=== PATIENT | male | born 1990 | race Caucasian/White ===

== ENCOUNTER 2021-01-11 20:49 | Inpatient (IN) | payer OTHER ==
[~2021-01-11] VITALS: Ht 177.8 cm; Wt 58.1 kg
--- NOTE | 2021-01-11 20:58 | NUR ---
PT BIBRA [address] [employer] [address]RE[address] C/O BEHAVIORAL AND BANGING HEAD AGAINST WALL. PT PLACED IN BED 12 ON MONITOR AND PULSE OX. PT VERBALLY ABUSIVE, SPITTING, AND KICKING AROUND. AWAITING ER MD FOR EVAL AND ORDERS.
[2021-01-11] MEDS ORDERED: LORAZEPAM INJ 2 MG/ML VIAL IM ONE (21:00)
[2021-01-11] MEDS ORDERED: OLANZAPINE 10 MG VIAL IM ONE ×2 (21:00→21:52)
[2021-01-11] MEDS ORDERED: diphenhydrAMINE HCL 50 MG/ML VIAL IM ONE (21:00)
--- NOTE | 2021-01-11 21:35 | NUR ---
PER OFFICER DOROTHY PT WAS PLACED ON 5150 HOLD FOR DTS
[2021-01-11] MEDS ORDERED: diphenhydrAMINE HCL 50 MG/ML VIAL ONE (21:52)
[2021-01-11] MEDS ORDERED: LORAZEPAM INJ 2 MG/ML VIAL ONE (21:54)
[2021-01-11 23:35] LABS: BASOPHILS # (AUTO) 0.1 /CMM (0.0-0.2); BASOPHILS % (AUTO) 0.7 % (0.0-2.0); EOSINOPHILS % (AUTO) 1.4 % (0.0-6.0); HEMATOCRIT 42 % (39-51); HEMOGLOBIN 13.8 g/dL (13.5-17.5); LYMPHOCYTES # (AUTO) 3.7 /CMM (0.8-4.8); LYMPHOCYTES % (AUTO) 41.8 % (20.0-44.0); MEAN CORPUSCULAR HGB CONC 33 g/dl (31.0-36.0); MEAN CORPUSCULAR VOLUME 92 fL (80-96); MONOCYTES % (AUTO) 11.5 % (2.0-12.0); NEUTROPHILS # (AUTO) 3.9 /CMM (1.8-8.9); NEUTROPHILS % (AUTO) 44.6 % (43.0-81.0); PLATELET COUNT (AUTO) 225 /CMM (150-450); RED BLOOD CELL COUNT(AUTO) 4.52 MIL/uL (4.5-6.0); WHITE BLOOD COUNT (AUTO) 8.9 K/uL (4.3-11.0)
[2021-01-11 23:39] LABS: CALCIUM, SERUM 9.1 mg/dL (8.5-10.1); CARBON DIOXIDE 28 mmol/L (21-32); CHLORIDE 103 mmol/L (98-107); CREATININE 0.9 mg/dL (0.6-1.3); GLUCOSE 96 mg/dL (74-106); POTASSIUM 3.2 mmol/L (3.5-5.1); SODIUM SERUM 141 mmol/L (136-145); UREA NITROGEN, BLOOD 20 mg/dL (7-18)
[2021-01-11 23:58] LABS: ALKALINE PHOSPHATASE 239 U/L (46-116); BILIRUBIN,DIRECT 5.1 mg/dL (0.0-0.2); TOTAL PROTEIN, SERUM 6.5 g/dL (6.4-8.2)
[2021-01-12 00:01] LABS: ACETAMINOPHEN 0 ug/ml (10-30); ALCOHOL, BLOOD < 3 mg/dL (0-0)
--- NOTE | 2021-01-12 00:05 | NUR ---
URINE COLLECTED, SENT TO LAB.
[2021-01-12 00:19] LABS: ALANINE AMINOTRANSFERASE 1961 U/L (12-78); ASPARTATE AMINOTRANSFERASE 1942 U/L (15-37)
--- NOTE | 2021-01-12 01:20 | NUR ---
BROUGHT BACK FROM CT
[2021-01-12 01:59] LABS: BILIRUBIN,URINE MODERATE (NEGATIVE); COLOR,URINE YELLOW (YELLOW); LEUKOCYTE ESTERASE ,URINE NEGATIVE (NEGATIVE); NITRITE, URINE NEGATIVE (NEGATIVE); PROTEIN,URINE TRACE mg/dl (NEGATIVE); UGLUCOSE NEGATIVE (NEGATIVE)
[2021-01-12 02:29] LABS: BACTERIA,URINE Few /HPF (None Seen); RBC,URINE 21-50 /HPF (0-2); SQUAMOUS EPITHELIAL CELL,UR Few /HPF (None Seen)
--- NOTE | 2021-01-12 06:13 | NUR ---
Covid negative per lab
--- NOTE | 2021-01-12 06:45 | NUR ---
REMAINS ON MONITOR AND PULSE OX. PROVIDED WITH FOOD.
--- NOTE | 2021-01-12 08:16 | NUR ---
PT SLEEPING SOUNDLY RESP EVEN UNLABORED
--- NOTE | 2021-01-12 12:39 | NUR ---
PATIENT IN BED. RESPIRATIONS UNLABORED. VITAL SIGNS STABLE. PROVIDED WITH LUNCH.
--- NOTE | 2021-01-12 15:49 | NUR ---
PATIENT SLEEPING. RESPIRATIONS EVEN AND UNLABORED. CONNECTED TO MONITOR. VITAL SIGNS STABLE.
--- NOTE | 2021-01-12 16:26 | NUR ---
[facility] CALLED ONLY PLACE ACCEPTING IN [place] AND NO BED UNTIL TOMORROW.
--- NOTE | 2021-01-12 16:41 | NUR ---
FAXED CLINICALS TO [facility] PER [facility]S REQUEST
--- NOTE | 2021-01-12 19:20 | NUR ---
PATIENT LAYING ASLEEP IN BED. VITAL SIGNS STABLE.
--- NOTE | 2021-01-12 23:45 | NUR ---
PT ASLEEP, VSS.
--- NOTE | 2021-01-13 04:13 | NUR ---
PT REMAINS ASLEEP, PROVIDED WITH BLANKETS.
--- NOTE | 2021-01-13 06:40 | NUR ---
CALLED FOR BREAKFAST
[2021-01-13] MEDS ORDERED: LORAZEPAM INJ 2 MG/ML VIAL ONE (07:47)
--- NOTE | 2021-01-13 07:51 | NUR ---
Assumed care report given by Esthela BILLY ,patient is 5150 awaiting for placement sitter @ bedside .
--- NOTE | 2021-01-13 07:52 | NUR ---
Patient yelling ,verbally abusive ,spitting ,trying getting out of bed non follows command MD aware with order for agitation .
[2021-01-13] MEDS ORDERED: LORAZEPAM INJ 2 MG/ML VIAL IM ONE (08:00)
--- NOTE | 2021-01-13 08:00 | NUR ---
Keerthi mckeon in ED - 01/13/21 at 0846 by MARTY Pt jake/ishmaeling- Dr Chastity carr w/orders for meds
[2021-01-13] MEDS ORDERED: OLANZAPINE 10 MG VIAL IM ONE ×2 (08:05→08:30)
--- NOTE | 2021-01-13 08:08 | NUR ---
Noted more agitation ,yelling cursing staff verbally abusive getting out of bed ,yelling loud non comply Md aware with order ,vitals taken and filed security standby .Continue to monitor .
--- NOTE | 2021-01-13 08:29 | NUR ---
CALLED [facility] [phone] MARÍA. THEY HAVE SENT CLINICALS TO VARIOUS HOSPITALS AND ARE WAITING CALL BACK. CALL WHEN WE GET A BED.
--- NOTE | 2021-01-13 08:51 | NUR ---
Breakfast served per INSPECTING SUPERVISOR consumed 100 % no nausea and vomiting .
--- NOTE | 2021-01-13 09:14 | NUR ---
Patient calm @ this time no further yelling ,remain 5150 checked room for safety side rails padded ,continue to monitor .
[2021-01-13] MEDS ORDERED: LITHIUM CARBONATE 150 MG CAPSULE PO SCH (10:00)
--- NOTE | 2021-01-13 10:36 | NUR ---
Patient eyes close arousable he agreed to take his oral meds lithium carbonate .
--- NOTE | 2021-01-13 11:50 | NUR ---
AT BEDSIDE FOR EVAL.
--- NOTE | 2021-01-13 12:04 | NUR ---
Patient eyes close arousable non distress continue to monitor .
[2021-01-13] MEDS ORDERED: LITH150C PO (12:42)
--- NOTE | 2021-01-13 13:04 | NUR ---
[facility] CALLED TONGUE CARRIER PAGED.
--- NOTE | 2021-01-13 13:38 | NUR ---
GOT BED 107
--- NOTE | 2021-01-13 14:16 | NUR ---
report given to Lesley BILLY for akhil.
--- NOTE | 2021-01-13 14:47 | NUR ---
wheeled patient via gurney accompanied by EMT in no distress. RN at bedside to assume care.
[2021-01-13 15:00] VITALS: BP 120/85
[2021-01-13] MEDS ORDERED: ONDANSETRON HCL/PF 4 MG/2 ML VIAL IVP PRN (17:30)
[2021-01-13] MEDS ORDERED: MAG HYDROX/AL HYDROX/SIMETH 30 ML UDC PO PRN (17:30)
[2021-01-13] MEDS ORDERED: MAGNESIUM HYDROXIDE 30 ML UDC PO PRN (17:30)
[2021-01-13] MEDS ORDERED: ZOLPIDEM TARTRATE 5 MG TABLET PO PRN (17:30)
[2021-01-13] MEDS ORDERED: Z GUARD REMEDY 2 OZ OINT TP PRN (17:30)
[2021-01-13] MEDS: IV 1/2NS 1000 ML 1,000 ML IV PRN (17:59)
[2021-01-13 20:00] VITALS: BP 111/62
--- NOTE | 2021-01-13 20:00 | NUR ---
RN NOTE RECEIVED PT IN BED A/A/O X3. PT IS ON RA SATING 96%. PT HAS UNLABORED BREATHING.PT STATES HE HAD SUICIDAL IDEATION AND WAS PLANNING TO JUMP OUT OF BRIDGE WITH GUN. PT HAS SITTER AT BED SIDE.SAFETY MEASURES IN PLACE
[2021-01-13] MEDS: LITHIUM CARBONATE (300 MG CAP) 300 MG CAPSULE PO SCH (21:16)
[2021-01-14 04:00] VITALS: BP 123/80
--- NOTE | 2021-01-14 07:16 | NUR ---
RN NOTE REPORT GIVEN TO ONCOMING SHIFT FOR MARIA DOLORES.
--- NOTE | 2021-01-14 07:28 | NUR ---
RECEIVED PATIENT IN BED. NO ACUTE DISTRESS NOTED. PATIENT ALERT & ORIENTED X3. PATIENT ON ROOM AIR, SATURATING WELL. PATIENT RFA INTACT, PATENT. SITTER IN PLACE. PATIENT SAFETY MEASURES MAINTAINED. CALL LIGHT WITHIN REACH. WILL CONTINUE TO MONITOR.
[2021-01-14 08:00] VITALS: BP 131/72
[2021-01-14] MEDS: LITHIUM CARBONATE (300 MG CAP) 300 MG CAPSULE PO SCH ×2 (09:03→20:38)
[2021-01-14 15:59] LABS: BASOPHILS % (AUTO) 0.6 % (0.0-2.0); EOSINOPHILS % (AUTO) 2.9 % (0.0-6.0); HEMATOCRIT 45 % (39-51); HEMOGLOBIN 14.7 g/dL (13.5-17.5); LYMPHOCYTES # (AUTO) 2.7 /CMM (0.8-4.8); LYMPHOCYTES % (AUTO) 42.6 % (20.0-44.0); MEAN CORPUSCULAR HGB CONC 33 g/dl (31.0-36.0); MEAN CORPUSCULAR VOLUME 92 fL (80-96); MONOCYTES # (AUTO) 0.7 /CMM (0.1-1.30); MONOCYTES % (AUTO) 11.7 % (2.0-12.0); NEUTROPHILS # (AUTO) 2.7 /CMM (1.8-8.9); NEUTROPHILS % (AUTO) 42.2 % (43.0-81.0); PLATELET COUNT (AUTO) 247 /CMM (150-450); RED BLOOD CELL COUNT(AUTO) 4.86 MIL/uL (4.5-6.0); WHITE BLOOD COUNT (AUTO) 6.4 K/uL (4.3-11.0)
[2021-01-14 16:00] VITALS: BP 122/72
[2021-01-14 16:07] LABS: ALBUMIN 2.8 g/dL (3.4-5.0); BILIRUBIN,DIRECT 4.8 mg/dL (0.0-0.2); CREATININE 0.8 mg/dL (0.6-1.3); MAGNESIUM 2.1 mg/dL (1.8-2.4); PHOSPHORUS 2.9 mg/dL (2.5-4.9); POTASSIUM 3.9 mmol/L (3.5-5.1); TOTAL PROTEIN, SERUM 7.2 g/dL (6.4-8.2)
[2021-01-14 16:20] LABS: THYROID STIMULATING HORMONE 1.252 uIU/mL (0.358-3.74)
--- NOTE | 2021-01-14 16:38 | NUR ---
SS Consult: SS consult requested substance use and emotional support The pt. is awake, alert and oriented x 2. The pt. appears disheveled. Pt. makes poor eye contact.Pt. has pressured speech with Persecutory delusions. The pt. is extremely paranoid, irritable, verbally aggressive. Patient requested SW not to look at him. Per EMR, pt. tested positive for Meth & Cannabinoids. Pt. stated that he hears voices "all day". Pt. stated the voices he hears are all female. Pt. stated, "that is probably why I am brown". Pt. requesting drug rehabs and mental health treatment for Schizophrenia. SW unable to further assess the pt. as he is very guarded and not willing to provide additional information. SW will provide resources and follow up accordingly.
--- NOTE | 2021-01-14 18:10 | NUR ---
PATIENT IN BED. NO ACUTE DISTRESS NOTED. PATIENT ALERT & ORIENTED X3. PATIENT ON ROOM AIR, SATURATING WELL. PATIENT RFA INTACT, PATENT. SITTER IN PLACE. PATIENT SAFETY MEASURES MAINTAINED. CALL LIGHT WITHIN REACH. WILL ENDORSE PLAN OF CARE TO ONCOMING SHIFT
--- NOTE | 2021-01-14 19:20 | NUR ---
RN OPENING NOTE RECEIVED PATIENT IN BED RESTING WITH SITTER ANXIOUS PARANOID YELLING CRYING ALERT ORIENTED X2 PREVIOUS NURSE ENDORSED HE REFUSED IV HYDRATION AND HE REMOVED IV LINE,NURSE ALREADY NOTIFIED IMPLEMENT SAFETY MEASURE,CALL LIGHT WITHIN REACH CONTINUE TO MONITOR.
--- NOTE | 2021-01-14 20:50 | NUR ---
RN NOTE SPOKE WITH PATIENT HE AGREED TO HAVE IV LINE STARTED A NEW IV LINE #22 ON LEFT FOREARM WITH GOOD BLOOD RETURN,INTACT PATENT,START IV HYDRATION 1/2NS 75CC/HR CONTINUE TO MONITOR
--- NOTE | 2021-01-14 21:46 | NUR ---
RN NOTE PATIENT REMOVED IV LINE AND REFUSE TO HAVE IV LINE YELLING SEAMING CONTINUE TO MONITOR.
--- NOTE | 2021-01-14 22:00 | NUR ---
RN NOTE PATIENT REQUEST TO HAVE IV LINE AND CONTINUE IV HYDRATION INSERT A NEW IV LINE ON LEFT FOREARM G#22 WITH GOOD BLOOD RETURN CONTINUE TO MONITOR.
[2021-01-15] VITALS (22 sets, daily range): BP systolic 114–147; BP diastolic 59–94
--- NOTE | 2021-01-15 | NUR ---
RN NOTE PATIENT REFUSES TO TAKE VITAL SIGNS CONTINUE TO MONITOR.
[2021-01-15] MEDS: IV 1/2NS 1000 ML 1,000 ML IV PRN ×2 (05:50→18:18)
--- NOTE | 2021-01-15 07:01 | NUR ---
RN CLOSING NOTE PATIENT REMAINS ON ALERT ORIENTED X2 ON ROOM AIR NO SOB NOT ACUTE DISTRESS NOTED,ANXIOUS AGITATED,REFUSED TO BE CHANGE IV SITE IS ON LEFT FOREARM INTACT PATENT IV 1/2 NS RUNNING 75CC/HR ENDORSE NEXT COMING SHIFT FOR CONTINUATION OF CARE.
--- NOTE | 2021-01-15 07:15 | NUR ---
RN OPENING NOTE PATIENT RECEIVED SITTING IN SEMI-FOWLERS POSITION. PATIENT IS ALERT ORIENTED X2 ON ROOM AIR. NO SOB OR ACUTE DISTRESS NOTED. PATIENT RECEIVED ANXIOUS AND AGITATED. IV SITE ON LEFT FOREARM #22 INTACT AND PATENT RUNNING 1/2 NS AT 75 ML/HR. SAFETY PRECAUTIONS IMPLEMENTED, BED LOCKED IN LOWEST POSITION, SIDE RAILS UP X2, CALL LIGHT WITHIN REACH. WILL CONTINUE TO MONITOR AND PROVIDE CARE THROUGHOUT SHIFT.
[2021-01-15] MEDS: OLANZAPINE 5 MG TABLET PO PRN (09:36)
[2021-01-15] MEDS: LITHIUM CARBONATE (300 MG CAP) 300 MG CAPSULE PO SCH ×3 (09:36→20:24)
--- NOTE | 2021-01-15 11:08 | NUR ---
Clinical Social Work Note Pt. is a 30 year old male admitted on a 5150 written by AKOSUA. pt is now on a [address] Zimmerman and has a sitter at his bedside. Patient has a history of stimulant and cannabinoid abuse. Patient will have his probable cause hearing in the next day or so. Discussed this case with Dr Zimmerman who feels patient needs to remain on 5250. Per Dolores,set up and charger patient responds well to Zyprexa. Patient cannot be transferred to an inpatient psychiatric facility in view of his liver failure.Patient is currently calm in his room and lying in bed. Dolores assisted with educating staff to give pt his Zprexa PRN before he escalates and is out of control on the floor which happened yesterday. Plan: Dr Zimmerman will continue consulting on patient and attempt to stabilize his psychosis while on the medical floor. 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 Patient shows signs of cluster B personality disorder in his presentation as well as possible disorders mentioned. Per Dolores patient gets upset and agitated when people engage with him so this writer editor did not meet with patient today. Plan: 1) Await probable cause hearing 2) Patient will need snf versus voluntary inpatient hospitalization at [facility] ([phone]) when medically stable and when 5250 is discontinued. [facility] and [facility] will not even consider this patent in view of liver disease.
[2021-01-15 11:10] LABS: HEMOGLOBIN 14.7 g/dL (13.5-17.5)
[2021-01-15 11:16] LABS: BASOPHILS # (AUTO) 0.2 /CMM (0.0-0.2); BASOPHILS % (AUTO) 2.3 % (0.0-2.0); CALCIUM, SERUM 8.3 mg/dL (8.5-10.1); CREATININE 0.8 mg/dL (0.6-1.3); EOSINOPHILS % (AUTO) 2.7 % (0.0-6.0); HEMATOCRIT 44 % (39-51); LYMPHOCYTES % (AUTO) 40.5 % (20.0-44.0); MAGNESIUM 1.9 mg/dL (1.8-2.4); MEAN CORPUSCULAR HGB CONC 33 g/dl (31.0-36.0); MEAN CORPUSCULAR VOLUME 92 fL (80-96); MONOCYTES # (AUTO) 0.8 /CMM (0.1-1.30); MONOCYTES % (AUTO) 10.3 % (2.0-12.0); NEUTROPHILS # (AUTO) 3.3 /CMM (1.8-8.9); NEUTROPHILS % (AUTO) 44.2 % (43.0-81.0); PHOSPHORUS 3.3 mg/dL (2.5-4.9); PLATELET COUNT (AUTO) 267 /CMM (150-450); POTASSIUM 3.8 mmol/L (3.5-5.1); RED BLOOD CELL COUNT(AUTO) 4.84 MIL/uL (4.5-6.0); WHITE BLOOD COUNT (AUTO) 7.4 K/uL (4.3-11.0)
[2021-01-15 11:39] LABS: ALBUMIN 2.7 g/dL (3.4-5.0); BILIRUBIN,DIRECT 2.7 mg/dL (0.0-0.2); BILIRUBIN,TOTAL 3.6 mg/dL (0.2-1.0); TOTAL PROTEIN, SERUM 7.3 g/dL (6.4-8.2)
[2021-01-15] MEDS: OLANZAPINE ZYDIS 5 MG TAB.RAPDIS PO SCH ×2 (12:47→17:00)
--- NOTE | 2021-01-15 15:10 | NUR ---
called anmol faustin patient shouting screaming and paranoid that everybody laughing at him.notified dr. berkowitz.
[2021-01-15] MEDS ORDERED: LORAZEPAM INJ 2 MG/ML VIAL IM ONE (16:00)
[2021-01-15] MEDS ORDERED: OLANZAPINE 10 MG VIAL IM ONE (16:00)
--- NOTE | 2021-01-15 17:00 | NUR ---
PATIENT HAD AGGRESSIVE VERBAL AND PHYSICAL OUTBURST WHERE PATIENT BEGAN BANGING BACK OF HEAD IN WALL REPEATEDLY. PATIENT THEN BROKE 106 ROOM WINDOW WITH RIGHT HAND. MD AWARE, ATTENDING AWARE, AND NURSING DEBEADER AWARE. IVIS NIETO CALLED X 2 TIMES. OBTAINED ORDERS TO ADMINISTER ZYPREXA AND ATIVAN IM. PATIENT THEN TRANSFERRED TO ICU PER PSYCH PROTOCOL.
--- NOTE | 2021-01-15 17:10 | NUR ---
prn zyprexa and ativan given.
--- NOTE | 2021-01-15 17:10 | NUR ---
despite security with patient, become more cambative and bang his head on wall and broke window glass. leather restraint initiated.
--- NOTE | 2021-01-15 17:11 | NUR ---
patient still awake talking to self,md made aware . transferred to icu for close monitoring.
--- NOTE | 2021-01-15 17:15 | NUR ---
RN INITIAL NOTES RECEIVED PT FROM CLAUDIA, SP CODE NIETO. PT ALERT, ORIENTED WITH PSYCHOTIC EPISODES. PT STILL NOTED WITH AGGRESSIVE BEHAVIOR. PT BANGING HIS HEAD ON BED, SPITTING, TRYING TO GET UP OF BED AND TRYING TO MOVE EXTREMITIES TRYING TO HIT. ON ROOM AIR. ON 3 POINT LEATHER RESTRAINT. ASSESSED BILATERAL HANDS AND RIGHT FOOT, NO CIRCULATORY IMPAIRMENT NOTED. PT ABLE TO MOVE FINGERS AND RIGHT TOES. GOOD PALPABLE PULSES NOTED. PT CONNECTED TO MONITOR. NOTIFIED ARLENE COCHRAN NP. CALLED DR GRIER, AWAITING FOR CALL BACK. WILL CLOSELY MONITOR
--- NOTE | 2021-01-15 17:19 | NUR ---
PATIENT TRANSFERRED TO ICU PER PSYCH PROTOCOL. REPORT GIVEN TO OLIVE.
[2021-01-15] MEDS ORDERED: OLANZAPINE 10 MG VIAL IM PRN (18:00)
[2021-01-15] MEDS: OLANZAPINE 10 MG TABLET PO SCH (18:08)
--- NOTE | 2021-01-15 18:51 | NUR ---
RN CLOSING NOTES NO PSYCHOTIC BEHAVIOR NOTED AT THIS TIME. REMAINS ON RESTRAINTS. IVF INFUSING. KEPT COMFORTABLE. WILL ENDORSE FOR CONTINUITY OF CARE
--- NOTE | 2021-01-15 19:15 | NUR ---
Received patient resting AAOX3 with occasional hallucination hearing voices.Patient on 3 point gait leather restraint with 1:1 sitter.No circulatory impairment noted.Skin warm to touch pulses palpable.VS stable.SR per monitor.Respiration even and unlabored.IVF infusing well.Denies pain or sob,nausea or vomiting.Closely monitored. Addendum: 01/15/21 at 2153 by ZAKIYA SANTANA RN please note : correction its nylon restraint
--- NOTE | 2021-01-15 20:30 | NUR ---
Patient incontinent of urine.Bed bath rendered and complete linens changed.Security in attendance during care.No violent behavior noted.Calm and cooperative.Turned to right side as requested.Verbalized comfort.Scheduled medication administered with water and cup of pudding.
[2021-01-16] VITALS (44 sets, daily range): BP systolic 101–135; BP diastolic 60–85
--- NOTE | 2021-01-16 | NUR ---
Patient sleeping awakened easily.Turned and repositioned .Condom cath in place with moderate urine output.Denies any discomfort.
--- NOTE | 2021-01-16 04:00 | NUR ---
Awakened verbalized he is hungry.Pudding and water given requested.VS remains stable. Self Turned and repositioned.Restraints protocol maintained.
[2021-01-16 04:26] LABS: BASOPHILS % (AUTO) 0.6 % (0.0-2.0); EOSINOPHILS % (AUTO) 2.7 % (0.0-6.0); HEMATOCRIT 44 % (39-51); HEMOGLOBIN 14.5 g/dL (13.5-17.5); LYMPHOCYTES # (AUTO) 2.8 /CMM (0.8-4.8); LYMPHOCYTES % (AUTO) 35.5 % (20.0-44.0); MEAN CORPUSCULAR HGB CONC 33 g/dl (31.0-36.0); MEAN CORPUSCULAR VOLUME 92 fL (80-96); MONOCYTES # (AUTO) 0.8 /CMM (0.1-1.30); MONOCYTES % (AUTO) 9.7 % (2.0-12.0); NEUTROPHILS # (AUTO) 4.1 /CMM (1.8-8.9); NEUTROPHILS % (AUTO) 51.5 % (43.0-81.0); PLATELET COUNT (AUTO) 253 /CMM (150-450); RED BLOOD CELL COUNT(AUTO) 4.81 MIL/uL (4.5-6.0)
[2021-01-16 04:48] LABS: CALCIUM, SERUM 8.1 mg/dL (8.5-10.1); CREATININE 0.8 mg/dL (0.6-1.3); MAGNESIUM 1.7 mg/dL (1.8-2.4); PHOSPHORUS 3.4 mg/dL (2.5-4.9)
[2021-01-16 04:54] LABS: ALBUMIN 2.6 g/dL (3.4-5.0); BILIRUBIN,DIRECT 1.7 mg/dL (0.0-0.2); BILIRUBIN,TOTAL 2.4 mg/dL (0.2-1.0); TOTAL PROTEIN, SERUM 7.2 g/dL (6.4-8.2)
--- NOTE | 2021-01-16 07:00 | NUR ---
Patient doze off and on.Always asking for food and provided.Good appetite.Patient refused to answer questions or inquiry.All he volunteered to to tell that he is adopted, homeless. Verbalized IM treated like a slave for 8 years.Don't ask me anymore question.Emotional support provided.Kept comfortable.Report given to day shift for MARIA DOLORES.No acute distress noted.
[2021-01-16] MEDS: IV 1/2NS 1000 ML 1,000 ML IV PRN ×2 (07:09→18:39)
--- NOTE | 2021-01-16 07:49 | NUR ---
RN OPENING NOTES RECEIVED PT AWAKE ALERT AND APPEARS AGITATED. SATURATING WELL ON ROOM AIR. SINUS VINOD 50S ON TELE MONITOR. THREE POINT RESTRAINT IN PLACE. COLOR WARMTH MOVEMENT SENSATION INTACT AND PERIPHERAL PULSES PRESENT. PATIENT INDEPENDENT WITH BED MOBILITY. PAXTON IV WITH IVF AT 75ML/HR. CONDOM CATHETER DRAINING TO GRAVITY. HAVING BREAKFAST AT THIS TIME. WILL CONTINUE TO MONITOR.
--- NOTE | 2021-01-16 08:00 | NUR ---
RN NOTES WHILE HAVING BREAKFAST, PATIENT TOOK OFF ELECTRODES, AND BP CUFF. GOT AGITATED ON ATTEMPT TO PUT THEM BACK. UNABLE TO OBTAIN VITAL SIGNS.
[2021-01-16] MEDS: LITHIUM CARBONATE (300 MG CAP) 300 MG CAPSULE PO SCH ×3 (08:10→12:23)
[2021-01-16] MEDS: OLANZAPINE 10 MG TABLET PO SCH ×4 (08:10→18:57)
--- NOTE | 2021-01-16 09:20 | NUR ---
RN NOTES PATIENT REMOVED CONDOM CATHETER AND REFUSED TO HAVE IT REPLACED. EMPTIED 500MLS WITH THE URINAL.
[2021-01-16] MEDS: Magnesium 1GM/D5W 100ML PREMIX 100 ML IV SCH ×2 (09:50→10:40)
[2021-01-16] MEDS: OLANZAPINE 5 MG TABLET PO PRN (12:19)
--- NOTE | 2021-01-16 12:47 | NUR ---
RN NOTES PATIENT REFUSED 1PM LITHIUM. RN OFFERED ZYPREXA 5MG PO PRN INSTEAD, BUT PATIENT ALSO REFUSED THIS. WILL CONTINUE TO MONITOR BEHAVIORAL CHANGES.
[2021-01-16] MEDS ORDERED: GABAPENTIN 300 MG CAPSULE PO SCH ×2 (13:00→17:00)
[2021-01-16] MEDS: chlorproMAZINE HCL 25 MG TABLET PO SCH (13:44)
--- NOTE | 2021-01-16 15:49 | NUR ---
Social Service Consult: student services rep requested to discuss plan of care with the patient. Patient is a 30-year-old, male. SW met with the patient at his hospital bed in the intensive care unit. Patient is alert and oriented x4. Patient is eating his lunch. Per patients chart, patient was brought into the hospital on 01/13/21 for liver disease. SW spoke to patients WENCESLAO Martin who stated that Dr. Zimmerman spoke to the patient earlier and patient has agreed to go to [facility] for psychiatric treatment. Per WENCESLAO Martin, patient is on a 5250 hold which expires on 01/28/2021. SW spoke to the patient regarding plan of care. Patient stated that he agrees with the above-mentioned discharge plan. Patient stated he is currently homeless and has no source of income. Patient stated that he is currently experiencing hallucinations. Patient stated these hallucinations are tactile, visual and auditory. Patient presented paranoid. SW offered the patient homeless resources and substance use resources. Patient declined the resources at this time and stated, If I accept them now it will jinx me so give them to me later. SW will place these resources in the patient's chart at this time. PLAN: Patient to be transferred to [facility] once medically stable. [employer] Acre[place] Measurer to remain available, as needed.
--- NOTE | 2021-01-16 16:00 | NUR ---
RN NOTES PATIENT REFUSING VITAL SIGNS. TAKING OUT ELECTRODES, BP CUFF, AND OXIMETRY PROBE. Addendum: 01/16/21 at 1701 by MICHELLE KAY RN PER DR ANDERSON AT THIS MORNING'S ROUNDS, PT DOESN'T REALLY NEED THE ICU FREQUENCY OF VITAL SIGNS MONITORING SINCE PT'S REASON FOR ICU ADMISSION IS THE USE OF LEATHER RESTRAINTS.
--- NOTE | 2021-01-16 16:51 | NUR ---
RN NOTES PATIENT SCREAMING, RESPONDING TO INTERNAL STIMULI AND REPORTS VISUAL, AND AUDITORY HALLUCINATIONS. FOOD AND SODA SEEMS TO IMPROVE PATIENT'S BEHAVIOR. DELAY IN HANDLING FOOD REQUESTS ESCALATE PATIENT'S AGITATION.
--- NOTE | 2021-01-16 18:32 | NUR ---
RN CLOSING NOTES PATIENT CONTINUES TO DEMONSTRATE PSYCHOTIC EPISODES EVIDENCED BY RESPONDING TO INTERNAL STIMULI, FREQUENT SCREAMING, AGITATION, PARANOID DELUSIONS, AND INSTANCES OF BANGING HEAD AGAINST PILLOWS. LEATHER RESTRAINTS REMAIN IN PLACE SINCE PATIENT REMAINS TO BE A HARM TO SELF AND POTENTIALLY OTHERS. GOOD COLOR WARMTH MOVEMENT AND SENSATION. PULSES PALPABLE. PATIENT'S VITAL SIGNS TAKEN MANUALLY. PATIENT HEMODYNAMICALLY STABLE AT THIS TIME AND NOT IN ANY RESPIRATORY DISTRESS. WILL ENDORSE TO NIGHT RN FOR CONTINUITY OF CARE.
--- NOTE | 2021-01-16 18:59 | NUR ---
RN NOTES PATIENT AGITATED AND UNCOOPERATIVE BUT LEFT SOLID BOWEL ON BED. REFUSED TO BE CLEANED AND YELLED: "GET OUT YOU FREAK". CONTINUES TO YELL AT TIME OF WRITING.
--- NOTE | 2021-01-16 19:00 | NUR ---
RN NOTES PATIENT INITIALLY REFUSED 1700 MEDS: OLANZAPINE 10MG AND GABAPENTIN CAPSULE THEN LATER CHANGED HIS MIND AND ASKED FOR IT. THUS WAS GIVEN PO. SCANNING IS ERROR WITNESSED BY WENCESLAO GARDNER.
--- NOTE | 2021-01-16 19:10 | NUR ---
RN NOTES PATIENT STARTED TO BE EXTREMELY AGITATED. CODE GERSON WAS CALLED. IM OLANZAPINE 10MG IM WAS GIVEN. PATIENT WAS THEN PLACED ON A 4 POINT RESTRAINT. PATIENT WAS VERY UNCOOPERATIVE.
--- NOTE | 2021-01-16 21:00 | NUR ---
MANAGER LAUNDRY. PT SCRAMMING. YELLING, BANGING HIS LEG. SPITTING IN THE ROOM. ACTIVATED CODE NIETO. NOTIFIED SENIOR MECHANICAL TECHNICIAN HORACIO. ATIVAN 2MG IM ONCE ORDERED. PT ON 4 POINT. WILL CONTINUE TO MONITOR.
--- NOTE | 2021-01-16 21:00 | NUR ---
agricultural science professor. received the pt awake, refused care, refused monitor technician BP MONITOR. PT ON 4 POINT. AGITATED, RELEASSED AND CHECKED NO INJURY NOTED. HORACIO PROOF TECHNICIAN ASSESSED THE PT. PT IS SPITTING ON THE BED AND FLOOR.
[2021-01-16] MEDS: GABAPENTIN 300 MG CAPSULE PO SCH (21:22)
[2021-01-16] MEDS ORDERED: LORAZEPAM INJ 2 MG/ML VIAL IM ONE (21:30)
[2021-01-17] VITALS (10 sets, daily range): BP systolic 105–138; BP diastolic 57–79
--- NOTE | 2021-01-17 02:29 | NUR ---
agricultural adviser. pt is sleeping. vitals stable,
[2021-01-17 04:39] LABS: CALCIUM, SERUM 8.2 mg/dL (8.5-10.1); CREATININE 0.8 mg/dL (0.6-1.3); POTASSIUM 4.1 mmol/L (3.5-5.1)
--- NOTE | 2021-01-17 05:30 | NUR ---
curator horticultural museum. at this time pt is very co operative,pt on 4 point restraint. no injury noted, will continue to monitor
[2021-01-17] MEDS: IV 1/2NS 1000 ML 1,000 ML IV PRN (06:24)
--- NOTE | 2021-01-17 07:15 | NUR ---
NATURALIZATION EXAMINER NOTES RECEIVED PATIENT AWAKE ALERT X2-3 , CALM AND COOPERATIVE , NO SI AT THIS TIME . SR 75 ON BEDSIDE MONITOR , SPO2 OF 100% VIA RA , PAXTON # 18 WITH 1/2 NS @ 75ML/HR INFUSING WELL , ON 4 POINT RESTRAINS VISUAL CHECK PER PROTOCOL , WILL CONTINUE TO MONITOR .
[2021-01-17] MEDS: GABAPENTIN 300 MG CAPSULE PO SCH ×2 (08:05→13:00)
[2021-01-17 09:25] LABS: ALBUMIN 2.5 g/dL (3.4-5.0); BILIRUBIN,DIRECT 1.2 mg/dL (0.0-0.2); BILIRUBIN,TOTAL 1.6 mg/dL (0.2-1.0)
--- NOTE | 2021-01-17 09:30 | NUR ---
BARREL ROLLER NOTES SEEN AND EVALUATED BY DR GRIER , DISCUSSED LABS , PT IS MORE AWAKE AND COOPERATIVE WITH NO EPISODES OF AGITATION , PER MD OK TO DC IF MEDICALLY CLEARED , PENDING LFT AND BILIRUBIN TEST
[2021-01-17] MEDS: OLANZAPINE 5 MG TABLET PO PRN (10:24)
--- NOTE | 2021-01-17 10:36 | NUR ---
SOFT WATER MECHANIC NOTES NOTIFIED FELICIANO BALDERAS REGARDING RESULT OF HIS LFT AND BILIRUBIN , PT ALSO COMPLAINS OF RIGHT HAND PAIN NOTED WITH SWELLING AND PAIN UPON TOUCHING , AWARE
--- NOTE | 2021-01-17 10:36 | NUR ---
REVISING CLERK NOTES PT NOTED WITH EPISODE OF AGITATION , OFFERED ZYPREXIA PRN , PT REFUSED , MEDICATION WASTED .
[2021-01-17] MEDS ORDERED: NAPROXEN 250 MG TABLET PO PRN (11:00)
--- NOTE | 2021-01-17 11:41 | NUR ---
DEMURRAGE MAN NOTES PT AGITATED AND CURSING WHILE EATING, ON 4 PT RESTRAINS , VERBAL ABUSIVE TO STAFF , Addendum: 01/17/21 at 1148 by JOSS MEIER RN EKG LEADS , BP CUFF PULSE OXIMETER OUT PT REFUSED TO BE MONITORED , PT IS AGITATED AND VERBALLY ABUSIVE TO STAFF ,
--- NOTE | 2021-01-17 12:01 | NUR ---
HELPER ELECTRICAL NOTES PT REFUSED VITAL SIGNS TO BE TAKEN , EXPLAINED THE BENEFITS OF VITAL SIGNS ASSEMENT , PT AGITATED AND VERBALIZED UNDERSTANDING BUT STILL REFUSES VS TO BE TAKEN
[2021-01-17] MEDS: chlorproMAZINE HCL 25 MG TABLET PO SCH (13:00)
--- NOTE | 2021-01-17 13:28 | NUR ---
ASSISTANT ACCOUNTING MANAGER NOTES NOTIFIED DR GRIER THAT PT IS CLEARED MEDICALLY AND [facility] AWARE OK TO REMOVED 5250 HOLD , ORDER CARRIED OUT NOTIFIED ARLENE WIGGINS THAT PT WILL BE DC @ [facility] , SIRIA WIGGINS OK TO DC ,
--- NOTE | 2021-01-17 13:28 | NUR ---
GRE TUTOR NOTES 1300 MEDS REFUSED , EXPLAINED THE BENEFITS OF TAKING THE MEDICATIONS , PT VERBALIZED UNDERSTANDING STILL REFUSES
--- NOTE | 2021-01-17 13:30 | NUR ---
FITTING ROOM INSPECTOR NOTES PT IS MORE COOPERATIVE , NO EPISODES OF AGGRESSIVE BEHAVIOR , CALM AND COOPERATIVE , DC 4X RESTRAINTS , WILL CONTINUE TO MONITOR .
[2021-01-17] MEDS ORDERED: OLAN10VI IM (13:54)
[2021-01-17] MEDS ORDERED: CHLO25TA13 PO (13:54)
[2021-01-17] MEDS ORDERED: NAPR-1196 PO (13:54)
[2021-01-17] MEDS ORDERED: OLAN5TAB3 PO (13:54)
[2021-01-17] MEDS ORDERED: GABA300C PO (13:54)
[2021-01-17] MEDS ORDERED: OLAN10TA3 PO (13:54)
--- NOTE | 2021-01-17 14:23 | NUR ---
D/C plannin:35 am- SMITH faxed clinicals to to [facility] [[facility] [place] [address] ] for voluntary inpatient psychiatric treatment. 1pm-SW notified that pt. is accepted to [facility] for psychiatric Tx. SW notified pt.s nurse to complete nurse to nurse report. SMITH requested case maker, Denisse to arrange for transportation. SMITH discussed D/C planning with HAIRSPRING CUTTER, Janie Rizo who is agreeable. Psychiatrist, Dr. Zimmerman following this pt. is agreeable for pt. to go to [facility].
--- NOTE | 2021-01-17 14:24 | NUR ---
POTTERY DECORATION DESIGNER NOTES REPORT GIVEN TO MARCELINO FOR PATIENT TRANSFER , ALL QUESTIONS ANSWERED ,
--- NOTE | 2021-01-17 15:10 | NUR ---
ELECTROPHYSIOLOGY TECHNICIAN NOTES PT STABLE UPON DC NO ACUTE EVENTS NOTED , PIV DISCONTINUED , SKIN IS INTACT NO WOUNDS NOTED , EXPLAINED DC INSTRUCTIONS PT VERBALIZED UNDERSTANDING , VSS , SPO2 OF 98% VIA RA , AFEBRILE , NO BELONGINGS NOTED , REPORT GIVEN TO DELROY ORANTES FOR PT TRANSFER .
== END 2021-01-17 15:40 | DRG 892 ==
LOC: EDBD 20:57 → ER 20:57 → MEDSG1 01-13 13:40 → ICU 01-15 17:05
PROVIDERS: ADMIT Student in an Organized Health Care Education/Training Program; ATTEND Registered Nurse
DX: B19.20 Unspecified viral hepatitis C without hepatic coma (principal); B20 Human immunodeficiency virus [HIV] disease; F29 Unspecified psychosis not due to a substance or known physiological condition; R45.851 Suicidal ideations; F25.9 Schizoaffective disorder, unspecified; N20.0 Calculus of kidney; Z59.0 Homelessness; Z72.0 Tobacco use; Z88.0 Allergy status to penicillin; Z20.822 Contact with and (suspected) exposure to COVID-19; Z88.4 Allergy status to anesthetic agent; F19.90 Other psychoactive substance use, unspecified, uncomplicated; F41.9 Anxiety disorder, unspecified; G31.84 Mild cognitive impairment of uncertain or unknown etiology; W22.01XA Walked into wall, initial encounter; Y92.410 Unspecified street and highway as the place of occurrence of the external cause
CPT/HCPCS: 36415; 70450-TC; 72125-TC; 76700-TC; 76705-TC; 80048-TC; 80061-TC; 80074; 80076-TC; 82247-TC; 82248-TC; 83690-TC; 83735-TC; 84100-TC; 84443-TC; 85025-TC; 87081-TC; A4349; G0378; G0480; J1200; J2060; J3475; J3490; J7040; Q0161